=== PATIENT | female | born 1960 | race African-American/Black ===

== ENCOUNTER 2022-04-11 11:36 | Emergency (ER) | payer OTHER ==
[~2022-04-11] VITALS: Ht 170.2 cm; Wt 72.7 kg
[~2022-04-11 11:36] MED LIST: FLUO-177 PO; PERCT PO
[2022-04-11 12:12] VITALS: BP 129/73
== END 2022-04-11 17:49 | disposition left against medical advice (07) ==
LOC: EMS 11:54
DX: T18.9XXA Foreign body of alimentary tract, part unspecified, initial encounter (principal); E78.00 Pure hypercholesterolemia, unspecified; F10.20 Alcohol dependence, uncomplicated; F17.210 Nicotine dependence, cigarettes, uncomplicated; X58.XXXA Exposure to other specified factors, initial encounter; Y93.89 Activity, other specified; Y92.89 Other specified places as the place of occurrence of the external cause; Y99.8 Other external cause status; Z90.710 Acquired absence of both cervix and uterus; Z88.0 Allergy status to penicillin
CPT/HCPCS: 99281; Z7502